=== PATIENT | female | born 1960 | race Caucasian/White ===

== ENCOUNTER 2020-11-10 05:31 | Emergency (ER) | payer OTHER ==
[2020-11-10 05:42] VITALS: BP 126/89; PULSE 96; TEMP 98.1; BMI 22.7
[2020-11-10] MEDS ORDERED: chlordiazePOXIDE HCL 25 MG CAPSULE PO ONE (06:27)
[2020-11-10] MEDS ORDERED: chlordiazePOXIDE HCL 25 MG CAPSULE ONE (06:52)
== END 2020-11-10 07:00 | disposition home or self-care (01) ==
LOC: JER 05:31
DX: R00.2 Palpitations (principal); F41.1 Generalized anxiety disorder
CPT/HCPCS: 93005; 93010; 99283-25